=== PATIENT | male | born 1980 | race Two or more races ===

== ENCOUNTER 2019-10-30 02:14 | Inpatient (IN) | payer MEDICARE, OTHER ==
[~2019-10-30] VITALS: Ht 167.6 cm; Wt 64.4 kg
[2019-10-30] VITALS (22 sets, daily range): BP systolic 136–193; BP diastolic 86–110
--- NOTE | 2019-10-30 02:18 | NUR ---
ED Nurse Note: Patient ANA RAAndrea from home c/o SOB since yesterday but got worse today. Per pt, he is using O2 at home @3-4L via nc. Bilateral lungs are clear. Pt was on 15L, non breather upon arrival, O2 100%. Pt has single lumen PICC line right upper chest and dialysis access on left upper arm. Dialysis days MWF, last dialysis was on Sat. Pt placed on alarm security or surveillance monitor.
--- NOTE | 2019-10-30 02:30 | Emergency Room Report ---
History of Present Illness General Chief Complaint: Dyspnea/Respdistress Source: Patient Present Illness HPI Patient presents with complaints of shortness of breath Reports that he has dialysis usually has dialysis Wednesday however had extra dialysis on Wednesday still feels very short of breath Patient reports that he has been changing the new medication and feels that he is retaining fluid Denies any vomiting denies any fevers denies any recent travel denies any other known sick contact COVID-19 risk:Travel to affect: No Allergies: Coded Allergies: METOCLOPRAMIDE (Verified Allergy, Unknown, 10/30/19) Patient History Past Medical History: see triage record Reviewed Nursing Documentation: PMH: Agreed; PSxH: Agreed Nursing Documentation-PMH Hx Hypertension: Yes Hx Asthma: Yes Hx Diabetes: Yes Hx Dialysis: Yes - MWF Review of Systems All Other Systems: negative except mentioned in HPI Physical Exam Vital Signs Date Time Temp Pulse Resp B/P (MAP) Pulse Ox O2 Delivery O2 Flow Rate FiO2 10/30/19 02:16 97.9 96 18 193/108 (136) 100 Simple Mask 15.0 Sp02 EP Interpretation: reviewed, normal General Appearance: moderate distress - Short of breath Head: normocephalic, atraumatic Eyes: bilateral eye PERRL, bilateral eye EOMI ENT: hearing grossly normal, EOM grossly intact Neck: supple Respiratory: crackles - bilaterally and tachypneic Cardiovascular #1: regular rate, rhythm Gastrointestinal: non tender, soft Musculoskeletal: normal inspection Neurologic: alert Skin: other - Pitting edema bilaterally Lymphatic: normal inspection Procedures Critical Care Time Critical Care Time 50 minutes for multiple re-evaluations critical presentation concerning for respiratory decompensation and possible not including any procedural time Medical Decision Making Diagnostic Impression: Primary Impression: Dyspnea Additional Impressions: Renal failure Respiratory distress ER Course Patient is a fairly complex patient with multiple differential to consideration including but not limited to cardiac cardiopulmonary and vascular emergencies Patient's x-ray shows concerning findings With significant pulmonary congestion On discussion with the patient's Applique Sewer patient also has had recent open heart surgery Patient placed on emergent BiPAP diuretics are provided patient reports he does make urine Requires more emergent dialysis and is admitted to ICU patient's primary physician /Shower Maid also contacted Labs Test 10/30/19 02:30 White Blood Count 8.3 K/UL (4.8-10.8) Red Blood Count 3.27 M/UL (4.70-6.10) Hemoglobin 9.4 G/DL (14.2-18.0) Hematocrit 28.6 % (42.0-52.0) Mean Corpuscular Volume 87 FL (80-99) Mean Corpuscular Hemoglobin 28.6 PG (27.0-31.0) Mean Corpuscular Hemoglobin Concent 32.7 G/DL (32.0-36.0) Red Cell Distribution Width 17.1 % (11.6-14.8) Platelet Count 269 K/UL (150-450) Mean Platelet Volume 5.6 FL (6.5-10.1) Neutrophils (%) (Auto) 77.4 % (45.0-75.0) Lymphocytes (%) (Auto) 11.0 % (20.0-45.0) Monocytes (%) (Auto) 6.7 % (1.0-10.0) Eosinophils (%) (Auto) 3.7 % (0.0-3.0) Basophils (%) (Auto) 1.2 % (0.0-2.0) Sodium Level 136 MMOL/L (136-145) Potassium Level 4.5 MMOL/L (3.5-5.1) Chloride Level 98 MMOL/L (98-107) Carbon Dioxide Level 28 MMOL/L (21-32) Anion Gap 10 mmol/L (5-15) Blood Urea Nitrogen 49 mg/dL (7-18) Creatinine 6.5 MG/DL (0.55-1.30) Estimat Glomerular Filtration Rate 9.7 mL/min (>60) Glucose Level 308 MG/DL (74-106) Calcium Level 9.0 MG/DL (8.5-10.1) Total Bilirubin 0.5 MG/DL (0.2-1.0) Aspartate Amino Transf (AST/SGOT) 34 U/L (15-37) Alanine Aminotransferase (ALT/SGPT) 27 U/L (12-78) Alkaline Phosphatase 178 U/L (46-116) Total Creatine Kinase 52 U/L (26-308) Troponin I 0.029 ng/mL (0.000-0.056) Pro-B-Type Natriuretic Peptide > 28489 pg/mL (0-125) Total Protein 7.7 G/DL (6.4-8.2) Albumin 3.0 G/DL (3.4-5.0) Globulin 4.7 g/dL Albumin/Globulin Ratio 0.6 (1.0-2.7) EKG Diagnostic Results Rate: normal Rhythm: NSR ST Segments: other - Nonspecific ST and T wave changes Rhythm Strip Diag. Results EP Interpretation: yes Rate: 88 Rhythm: NSR, no PVC's, no ectopy Chest X-Ray Diagnostic Results Chest X-Ray Diagnostic Results : Chest X-Ray Ordered: Yes # of Views/Limited/Complete: 1 View Indication: Shortness of Breath EP Interpretation: Yes Interpretation: no pneumothorax, other - Significant pulmonary edema, cardiomegaly Impression: Other - Pulmonary edema Electronically Signed by: Aisha Ward DO Last Vital Signs Date Time Temp Pulse Resp B/P (MAP) Pulse Ox O2 Delivery O2 Flow Rate FiO2 10/30/19 02:18 97.9 96 18 193/108 100 Non-Rebreather 15.0 Status: improved Disposition: ADMITTED INPATIENT Condition: Critical Aisha Ward DO Oct 30, 2019 02:30
--- NOTE | 2019-10-30 02:40 | NUR ---
RESPIRATORY NOTE: Pt came in ED c/o SOB. Pt placed on BiPAP 15/5, back up rate 14, 40%. Pt on a Facial mask, skin intact, no redness/breakdowns noted. Foam tape applied on pt's nosebridge/cheeks/chin to prevent mask irritations. Pt is alert/awake, follows commands. B/S saundra. diminished, nonproductive cough. BiPAP plugged into red outlet, alarms on & audible. Pt comfortable on current settings, tolerating well. Will continue to monitor pt.
--- NOTE | 2019-10-30 02:41 | NUR ---
ED Nurse Note: BIPAP is in placed c/o RT. Settings: 15/5, FiO2 40%.
[2019-10-30 02:46] LABS: BASOPHILS % (AUTO) 1.2 % (0.0-2.0); EOSINOPHILS % (AUTO) 3.7 % (0.0-3.0); HEMATOCRIT 28.6 % (42.0-52.0); HEMOGLOBIN 9.4 G/DL (14.2-18.0); MEAN CORPUSCULAR VOLUME 87 FL (80-99); MONOCYTES % (AUTO) 6.7 % (1.0-10.0); NEUTROPHILS % (AUTO) 77.4 % (45.0-75.0); PLATELET COUNT 269 K/UL (150-450); RED BLOOD COUNT 3.27 M/UL (4.70-6.10); RED CELL DISTRIBUTION WIDTH 17.1 % (11.6-14.8); WHITE BLOOD COUNT 8.3 K/UL (4.8-10.8)
[2019-10-30 02:52] LABS: ANION GAP 10 mmol/L (5-15); BLOOD UREA NITROGEN 49 mg/dL (7-18); CARBON DIOXIDE 28 MMOL/L (21-32); CHLORIDE 98 MMOL/L (98-107); CREATININE 6.5 MG/DL (0.55-1.30); POTASSIUM 4.5 MMOL/L (3.5-5.1); SODIUM 136 MMOL/L (136-145)
[2019-10-30 03:03] LABS: ALANINE AMINOTRANSFERASE 27 U/L (12-78); ALBUMIN/GLOBULIN RATIO 0.6 (1.0-2.7); ALKALINE PHOSPHATASE 178 U/L (46-116); ASPARTATE AMINO TRANSFERASE 34 U/L (15-37); BILIRUBIN,TOTAL 0.5 MG/DL (0.2-1.0); CREATINE KINASE 52 U/L (26-308)
[2019-10-30] MEDS ORDERED: DRONABINOL10 MG PO (03:16)
[2019-10-30] MEDS ORDERED: PANTOPRAZOLE SO40 MG ORAL (03:16)
[2019-10-30] MEDS ORDERED: BUMETANIDE1 MG ORAL (03:16)
[2019-10-30] MEDS ORDERED: ASPIRIN81 MG ORAL (03:16)
[2019-10-30] MEDS ORDERED: HYDRALAZINE HCL50 MG ORAL (03:16)
[2019-10-30] MEDS ORDERED: CARVEDILOL25 MG ORAL (03:16)
[2019-10-30] MEDS ORDERED: CRESTOR10 M2 ORAL (03:16)
[2019-10-30] MEDS ORDERED: AMITRIPTYLINE H10 MG ORAL (03:16)
[2019-10-30] MEDS ORDERED: AMLODIPINE BESY10 MG ORAL (03:16)
[2019-10-30] MEDS ORDERED: DICYCLOMINE HCL10 MG ORAL (03:16)
[2019-10-30] MEDS ORDERED: SENNA8.6 M2 PO (03:16)
[2019-10-30] MEDS ORDERED: NICODERM CQ1 EAC1 TD (03:16)
[2019-10-30] MEDS ORDERED: LANTUS SOL100 UNIT/1 SUBQ (03:16)
[2019-10-30] MEDS ORDERED: NEPHROVITE1 TAB ORAL (03:16)
[2019-10-30] MEDS ORDERED: OXYCODONE HCL15 M1 ORAL (03:16)
[2019-10-30] MEDS ORDERED: CALCIUM ACETAT667 M1 PO (03:16)
[2019-10-30] MEDS ORDERED: CARAFATE1 G1 ORAL (03:16)
[2019-10-30] MEDS ORDERED: ROBAXIN-500MG ORAL (03:16)
[2019-10-30] MEDS ORDERED: HUMALOG100 UNIT/4 SUBQ (03:16)
[2019-10-30] MEDS ORDERED: DOCUSATE SODIU100 MG ORAL (03:16)
--- NOTE | 2019-10-30 03:34 | NUR ---
ED Nurse Note: Pt refused CRE/ VRE swabs.
--- NOTE | 2019-10-30 03:36 | NUR ---
Spoke with Alexandre at [facility]-informed him of the dialysis order. Also told him that patient will be in ICU.
--- NOTE | 2019-10-30 03:48 | NUR ---
ED Nurse Note: Report given to Satnam LAUREN.
--- NOTE | 2019-10-30 04:00 | NUR ---
TRANSFER TO FLOOR: Patient transferred to ICU. Report given to Satnam LAUREN. Pt alert and orientedx4, verbally responsive. On BIPAP, tolerating well. Not in any distress. Pt has PICC line single lumen on right upper chest, patent and intact. Dialysis access on left upper arm. No skin issues. No isolation Swabs are sent. Med recon done. All belongings was sent with the patient. Family member aware of the transfer.
--- NOTE | 2019-10-30 04:30 | NUR ---
NURSE NOTES: admit pt from er c/o sob hx hd pt and astma and htn pt c/o pain dr delarosa and dr pate notify with made pain medication given
[2019-10-30] MEDS ORDERED: LORazepam Inj 2mg/ml 1ml IV PRN (04:45)
[2019-10-30] MEDS ORDERED: HYDROmorphone 1mg/ml Carpuject ONE (04:52)
[2019-10-30] MEDS: HYDROmorphone 1mg/ml Carpuject IVP PRN ×5 (05:03→20:01)
--- NOTE | 2019-10-30 06:00 | NUR ---
NURSE NOTES: pt no c/o pain hd stared
[2019-10-30] MEDS: NovoLOG Insulin Flexpen SUBQ SCH ×4 (06:18→20:20)
--- NOTE | 2019-10-30 07:51 | NUR ---
NURSE NOTES: Pt received from LEONIDAS Menezes. Pt is asleep, drowsy, in bed, AAO x1 , able to follow commands. PERRLA + bilat pupils. Pt noted in SR to front desk monitor. No distress noted. Bilat radial and dorsalis pedis pulses 3+. Pt in on Bipap 15/5 35% spO2 98-99%. Bilat lower lung lobes noted diminished and bilat upper lung lobes with fine crackles to auscultation. No skin alterations noted. Pt has a MAEGAN AV shunt and is currently receiving dialysis. R upper chest PICC single lumen noted saline locked. BG checked noted 117. Pt is afebrile. Bed is in lowest position, alarm on, side rails up x 3, call light within reach. Will continue to monitor pt.
--- NOTE | 2019-10-30 07:51 | NUR ---
HAND-OFF: Report given to austen dutton using sbar.
--- NOTE | 2019-10-30 08:23 | Diagnostic Imaging Report ---
Indication: Shortness of breath Technique: One view of the chest Comparison: none Findings: Extensive bilateral interstitial and airspace infiltrates versus edema is noted. Right-sided pleural thickening and/or fluid is present. There is slight blunting of left costophrenic sulcus, likely indicating a small amount of pleural fluid. There is a right chest tunneled smallbore central venous catheter. There is evidence of prior median sternotomy. Impression: Extensive bilateral diffuse interstitial and airspace infiltrates versus edema Large right pleural effusion and/or pleural thickening Suspect small left pleural effusion
--- NOTE | 2019-10-30 08:52 | NUR ---
HAND-OFF: Report given to Talia, charge nurse. Pt still receving dialysis.
[2019-10-30] MEDS: HydrALAZINE 50mg tab ORAL SCH ×3 (09:00→17:48)
[2019-10-30] MEDS: Carvedilol 25mg Tab ORAL SCH ×2 (09:00→20:17)
[2019-10-30] MEDS: Lisinopril 20mg tab ORAL SCH ×2 (09:00→17:47)
[2019-10-30] MEDS: Heparin 5000 units/ml inj SUBQ SCH ×2 (09:00→20:19)
--- NOTE | 2019-10-30 09:30 | NUR ---
pt received hd via left fistula with present thrill and bruit by maria del carmen cazares/pérez, received pt from precious ,pt is on bipap and sleeping,vs stable uf 35ooml tolerated hd tx from 0600 to 0930am endorsed to liv with strong thrill and bruit clot time a;8min v;8min after hd.
--- NOTE | 2019-10-30 09:45 | Consultation ---
DATE OF CONSULTATION: 10/30/2019 CONSULTING PHYSICIAN: Ismael Gallagher M.D. DATE OF ADMISSION: October 30, 2019 REASON FOR ADMISSION: 1. End-stage renal disease, on dialysis. 2. Shortness of breath. HISTORY OF PRESENT ILLNESS: The patient is a 39-year-old gentleman on dialysis Wednesday, Wednesday, and Wednesday. The patient did undergo extra hemodialysis session on Wednesday, continued to feel short of breath, extremely elevated blood pressure, who was in respiratory distress. BiPAP was placed and the patient was transferred to intensive care unit. The patient has a history recently of right-sided effusion requiring thoracotomy at [facility]. He is currently undergoing hemodialysis. ALLERGIES: Metoclopramide. PAST MEDICAL HISTORY: 1. End-stage renal disease, on dialysis. 2. Hypertension. 3. Asthma. 4. Diabetes. 5. ESRD. REVIEW OF SYSTEMS: The patient currently on facial BiPAP. LABORATORY DATA: Laboratories dated October 30, 2019, sodium 136, potassium 4.5, bicarb 28, creatinine 6.5. White count 9.4, 8.3, and platelet count 269,000. PHYSICAL EXAMINATION: VITAL SIGNS: Blood pressure 136/86, respiratory rate 20, pulse 90, and 100% oxygen saturation on facial BiPAP. GENERAL: The patient is somnolent, but arousable. HEENT: Extraocular muscles intact. No lymphadenopathy noted. CARDIOVASCULAR: S1, S2. No rubs or gallops. PULMONARY: Mild upper rhonchi and basilar rales. ABDOMEN: Nondistended and nontender. EXTREMITIES: No edema. ASSESSMENT AND PLAN: 1. End-stage renal disease, on hemodialysis. The patient is undergoing emergent hemodialysis with ultrafiltration. 2. Hypertensive urgency. We will continue Coreg, hydralazine, and Procardia. We will adjust medications as deemed appropriate. 3. Anemia of chronic kidney disease. Once blood pressure is stable, we will continue Epogen. 4. Respiratory failure. Defer management to Pulmonary. Three and a half liters of ultrafiltration. On facial BiPAP. Ismael Gallagher MD DR: Ronel JOB#: [id number] CC:
--- NOTE | 2019-10-30 09:45 | NUR ---
0945 hd completed with 3,5 liter removed LT,AVF SITE DRESSING CHANGED BY [facility] HD NURSE CHARLES Holcomb V/S CONDITION STABLE
--- NOTE | 2019-10-30 11:48 | NUR ---
PT SEEN BY ENRIQUE CROW NO NEW ORDERS ,CONT BIPAP
--- NOTE | 2019-10-30 12:01 | History & Physical ---
History and Physical History & Physicial HISTORY OF PRESENT ILLNESS: The patient is a 39-year-old gentleman on dialysis Wednesday, Wednesday, and Wednesday. The patient did undergo extra hemodialysis session on Wednesday, continued to feel short of breath, extremely elevated blood pressure, who was in respiratory distress. BiPAP was placed and the patient was transferred to intensive care unit. The patient has a history recently of right-sided effusion requiring thoracotomy at [facility]. He was admitted with respiratory failure on BiPAP ALLERGIES: Metoclopramide. PAST MEDICAL HISTORY: 1. End-stage renal disease, on dialysis. 2. Hypertension. 3. Asthma. 4. Diabetes. 5. ESRD. 6. Previous R thoracotomy and decortication REVIEW OF SYSTEMS: The patient currently on facial BiPAP. LABORATORY DATA: Laboratories dated October 30, 2019, sodium 136, potassium 4.5, bicarb 28, creatinine 6.5. White count 9.4, 8.3, and platelet count 269,000. PHYSICAL EXAMINATION: VITAL SIGNS: Blood pressure 136/86, respiratory rate 20, pulse 90, and 100% oxygen saturation on facial BiPAP. GENERAL: The patient is somnolent, but arousable. HEENT: Extraocular muscles intact. No lymphadenopathy noted. CARDIOVASCULAR: S1, S2. No rubs or gallops. PULMONARY: Mild upper rhonchi and basilar rales. ABDOMEN: Nondistended and nontender. EXTREMITIES: No edema. ASSESSMENT AND PLAN: 1. End-stage renal disease, on hemodialysis. The patient is undergoing emergent hemodialysis with ultrafiltration. 2. Hypertensive urgency. I will continue Coreg, hydralazine, and Procardia. I will adjust medications as deemed appropriate. 3. Anemia of chronic kidney disease. Once blood pressure is stable, we will continue Epogen. 4. Respiratory failure. Will wean BiPAP. MD Liv Dennis Omar Syed MD Oct 30, 2019 12:01
--- NOTE | 2019-10-30 12:52 | NUR ---
Social Work This SW met with patient, currently in the ICU who is sedated, not responsive at this time. This SW spoke with caregiver/cousin (currently in the waiting room), who explains patient lives with her and plans to assist as needed upon discharge (she is at home with patient 08/03). Patient was using home 02 (2-3 liters) and had home care prior (unable to recall the name of the agency at this time). Patient was ambulatory overall and has a wheelchair and cane, as needed. CousinLilian ([phone]) will transport patient to home when medically stable. Lilian denied any history of substance abuse, while patient had quit smoking cigarettes over two months ago. Patient is receiving SSI. Cousin explains she has been having problems with the Social Security office, regarding "back-pay." Legal services contacts were provided by this SW. Patient has a flight of steps to get into their home, while cousin explains she believes patient can manage, was mostly independent prior. Patient has a history of depression and suicidal ideations, but has not been verbalizing any SI for some time, according to Rayna. Alejandra, RETAIL ZONE SPECIALIST notified, for Psych to follow, as needed. Patient has been coping overall emotionally per nursing and family reports.
--- NOTE | 2019-10-30 14:01 | NUR ---
NURSE NOTES: Patient complaining of severe pain 02/22. Patient nurse unable to assist the patient at this time. Patient given PRN Dilaudid IV medication at this time as ordered. Patient also requesting his Nicotine patch. Nicotine patch was due this morning at 0900. Nicotine patch given at this time in addition to Hydralazine PO that is ordered to be given now. Patient also requesting to be placed back on BiPAP as he is feeling short of breath. BiPAP placed back on patient. Will notify RT. Patient blood sugar checked per patient request at this time. Blood sugar 271. However coverage not due at this time and patient just drank juice and ate his lunch. Will recheck blood sugar in an hour. Patient agreed. LEONIDAS Melgar notified.
--- NOTE | 2019-10-30 15:52 | NUR ---
[employer] SI: RESP FAILURE, RENAL FAILURE T. 97.8 HR 96 RR 18 B/P 193/108 BIPAP 15/5 FIO2 40% ALK PHOS 170 BNP>[id number] CXR= Extensive bilateral diffuse interstitial and airspace infiltrates versus edema. IS: HD DIALYSIS ADMITTED TO ICU ICU STATUS DCP PENDING HOSPITAL STAY
--- NOTE | 2019-10-30 17:00 | NUR ---
sitting up @bedsidr on O2 3L/NC SAT96% NO ACUTE DISTRESS NOTED
--- NOTE | 2019-10-30 18:32 | NUR ---
@1800 pt,requested place BACK ON BIPAP SAT 100% ON BIPAP/ASLEEP V/S CONDITION STABLE
--- NOTE | 2019-10-30 19:10 | NUR ---
NURSE NOTES: Pt report received from Talia major RN. pt remains stable. pt is alert and oriented times 4, able to follow commands. pt is on environmental monitoring specialist showing NSR, no cardiac distress noted. pt is on BIPAP showing 99% O2. no signs symptoms of resp distress noted. pt bed is low, locked, armed, call light within reach, bed rails up times 3. will follow plan of care.
--- NOTE | 2019-10-30 19:26 | NUR ---
HAND-OFF: Report given to isabelle MONSON.
[2019-10-30] MEDS ORDERED: ADALAT20 MG ORAL (21:12)
[2019-10-30] MEDS ORDERED: CATAPRES0.1 MG ORAL (21:16)
[2019-10-30] MEDS ORDERED: B COMPLEX-FOLI1 EACH ORAL (21:20)
--- NOTE | 2019-10-30 21:23 | NUR ---
NURSE NOTES: Discussed pts home meds with Pt and family member. reconciled home meds.
--- NOTE | 2019-10-30 21:39 | NUR ---
NURSE NOTES: Called Doctor ENRIQUE Spicer reported pts consistent high blood presses (refer to vital signs). Doctor reviewed all meds pt is on and ordered clonodine .2 mg PO Q4 hr PRN for SBP greater than 160.
[2019-10-30] MEDS: cloNIDine 0.2mg Tab ORAL PRN (21:51)
[2019-10-30] MEDS ORDERED: Dyna-Hex 2% Top Sol 2oz TOPIC ONE (23:00)
[2019-10-31] VITALS (22 sets, daily range): BP systolic 147–193; BP diastolic 69–118
[2019-10-31] MEDS: cloNIDine 0.2mg Tab ORAL PRN (02:13)
[2019-10-31] MEDS: HYDROmorphone 1mg/ml Carpuject IVP PRN ×4 (03:32→19:38)
[2019-10-31 05:26] LABS: BASOPHILS % (AUTO) 0.9 % (0.0-2.0); EOSINOPHILS % (AUTO) 5.1 % (0.0-3.0); HEMATOCRIT 27.7 % (42.0-52.0); LYMPHOCYTES % (AUTO) 15.9 % (20.0-45.0); MEAN CORPUSCULAR VOLUME 89 FL (80-99); MONOCYTES % (AUTO) 6.9 % (1.0-10.0); NEUTROPHILS % (AUTO) 71.3 % (45.0-75.0); PLATELET COUNT 242 K/UL (150-450); RED BLOOD COUNT 3.11 M/UL (4.70-6.10); RED CELL DISTRIBUTION WIDTH 17.8 % (11.6-14.8); WHITE BLOOD COUNT 6.7 K/UL (4.8-10.8)
[2019-10-31 05:37] LABS: ANION GAP 8 mmol/L (5-15); BLOOD UREA NITROGEN 42 mg/dL (7-18); CALCIUM 8.7 MG/DL (8.5-10.1); CARBON DIOXIDE 31 MMOL/L (21-32); CHLORIDE 97 MMOL/L (98-107); CREATININE 5.8 MG/DL (0.55-1.30); POTASSIUM 4.6 MMOL/L (3.5-5.1); SODIUM 136 MMOL/L (136-145)
[2019-10-31] MEDS: NovoLOG Insulin Flexpen SUBQ SCH ×4 (05:49→21:55)
--- NOTE | 2019-10-31 06:29 | NUR ---
NURSE NOTES: called doctor Gallagher. stated pts blood pressure has been constantly high the whole night warehouse selector. also stated to doctor Gallagher that doctor panda is aware of high blood pressure, and doctor Peck had ordered PRN Clonidine 0.2 MG Q4 PRN. Doctor Gallagher stated he will adjust pts medications. no new order.
--- NOTE | 2019-10-31 07:13 | NUR ---
HAND-OFF: Report given to Demetrice LAUREN. Pt remains stable.
--- NOTE | 2019-10-31 07:28 | NUR ---
NURSE NOTES: Received bedside report from Marcio Silverman RN. Pt. in bed, sitting at the edge of the bed having breakfast. A/O x 4. No sign of distress. On O2 at 2LPM via NC. Pt. took off his Bipap at around 5am per previous shift. PICC line at right upper chest in placed with 1 lumen. MAEGAN AV shunt in placed, no s/sx of bleeding at the site. Call light within reach. Will cont. to monitor.
--- NOTE | 2019-10-31 08:06 | Nephrology Progress Note ---
Assessment/Plan Assessment/Plan: A/P 1) ESRD- HD today again for volume management 2) HTN- added clonidine patch and increased Coreg 3) Resp FL- resolved, off BiPAP, transfer to [facility] 4) Anemia of CKD- hold off EPO until BP stable 5) SHPT- renvela with meals 6) DM- per PCP Subjective Date patient seen: Oct 31, 2019 Time patient seen: 08:01 ROS Limited/Unobtainable: No Allergies: Coded Allergies: METOCLOPRAMIDE (Verified Allergy, Unknown, 10/30/19) All Systems: reviewed and negative except above Subjective Feeling much better. BP still elevated Objective Last 24 Hour Vital Signs Date Time Temp Pulse Resp B/P (MAP) Pulse Ox O2 Delivery O2 Flow Rate FiO2 10/31/19 07:09 81 15 157/89 (111) 99 10/31/19 07:00 81 18 177/117 (137) 100 10/31/19 07:00 81 18 100 10/31/19 06:00 80 19 186/99 (128) 99 10/31/19 05:00 80 19 174/88 (116) 98 10/31/19 04:00 40 10/31/19 04:00 Bi-pap Bi-pap 10/31/19 04:00 97.9 80 20 159/98 (118) 98 10/31/19 04:00 85 10/31/19 03:00 85 19 185/96 (125) 99 10/31/19 02:40 79 19 95 35 10/31/19 02:13 166/92 10/31/19 02:00 80 19 166/92 (116) 98 10/31/19 01:24 79 31 100 35 10/31/19 01:00 82 18 171/89 (116) 98 10/31/19 00:00 74 10/31/19 00:00 40 10/31/19 00:00 Bi-pap Bi-pap 10/31/19 00:00 97.8 77 20 162/93 (116) 99 10/30/19 23:51 72 17 99 35 10/30/19 23:00 74 20 174/86 (115) 99 10/30/19 22:00 79 20 181/104 (129) 99 10/30/19 21:51 180/111 10/30/19 21:09 79 17 100 35 10/30/19 21:00 83 20 187/108 (134) 100 10/30/19 20:17 89 185/102 10/30/19 20:00 40 10/30/19 20:00 89 10/30/19 20:00 98.4 90 21 185/108 (133) 99 10/30/19 20:00 Bi-pap Bi-pap 10/30/19 19:48 95 22 100 35 10/30/19 19:00 90 23 174/102 (126) 100 10/30/19 18:00 40 10/30/19 18:00 91 24 163/90 (114) 97 10/30/19 17:48 182/112 10/30/19 17:47 182/112 10/30/19 17:00 97 15 174/90 (118) 96 10/30/19 16:00 Bi-pap Bi-pap 10/30/19 16:00 97.6 92 15 174/110 (131) 93 10/30/19 16:00 99 10/30/19 15:25 92 24 98 35 10/30/19 15:00 92 15 182/105 (130) 93 10/30/19 14:00 91 13 186/98 (127) 98 10/30/19 13:52 177/109 10/30/19 13:13 3.0 10/30/19 13:00 98 17 175/97 (123) 100 10/30/19 12:00 Bi-pap Bi-pap 10/30/19 11:59 98.2 88 21 168/97 (120) 100 10/30/19 11:56 88 10/30/19 11:00 87 17 170/100 (123) 100 10/30/19 10:55 80 18 100 35 10/30/19 10:00 84 17 158/97 (117) 100 10/30/19 09:15 83 20 100 35 10/30/19 09:00 140/70 10/30/19 09:00 88 140/70 10/30/19 09:00 140/70 10/30/19 09:00 79 14 138/96 (110) 100 Intake and Output 10/30/19 10/31/19 19:00 07:00 Intake Total 3900 ml 100 ml Output Total 3500 ml Balance 400 ml 100 ml Intake Oral 400 ml 100 ml Hemodialysis 3500 ml Output Urine Total 0 ml Hemodialysis UF 3500 ml Laboratory Tests 10/31/19 03:20: White Blood Count 6.7, Red Blood Count 3.11L, Hemoglobin 9.0L, Hematocrit 27.7L , Mean Corpuscular Volume 89, Mean Corpuscular Hemoglobin 28.8, Mean Corpuscular Hemoglobin Concent 32.3, Red Cell Distribution Width 17.8H, Platelet Count 242, Mean Platelet Volume 5.7L, Neutrophils (%) (Auto) 71.3, Lymphocytes (%) (Auto) 15.9L, Monocytes (%) (Auto) 6.9, Eosinophils (%) (Auto) 5.1H, Basophils (%) (Auto) 0.9, Sodium Level 136, Potassium Level 4.6, Chloride Level 97L, Carbon Dioxide Level 31, Anion Gap 8, Blood Urea Nitrogen 42H, Creatinine 5.8H, Estimat Glomerular Filtration Rate 11.1, Glucose Level 272H, Calcium Level 8.7 Height (Feet): 5 Height (Inches): 6.00 Weight (Pounds): 139 General Appearance: no apparent distress, alert EENT: normal ENT inspection Neck: normal alignment, supple Cardiovascular: normal rate, regular rhythm Respiratory/Chest: lungs clear, normal breath sounds Abdomen: non tender, soft Edema: no edema noted Arm (L), no edema noted Arm (R), no edema noted Leg (L), no edema noted Leg (R), no edema noted Pedal (L), no edema noted Pedal (R), no edema noted Generalized Ismael Gallagher MD Oct 31, 2019 08:06
[2019-10-31] MEDS: HydrALAZINE 50mg tab ORAL SCH ×3 (08:27→18:13)
[2019-10-31] MEDS: Lisinopril 20mg tab ORAL SCH ×2 (08:28→18:13)
[2019-10-31] MEDS: Heparin 5000 units/ml inj SUBQ SCH ×2 (08:31→21:55)
--- NOTE | 2019-10-31 08:40 | NUR ---
NURSE NOTES: Pt. noted keeps on drinking his ice water at bedside. Educated regarding intake. Verbalized understanding.
[2019-10-31] MEDS ORDERED: Carvedilol 12.5mg tab ORAL SCH ×2 (09:00→21:00)
--- NOTE | 2019-10-31 10:11 | NUR ---
NURSE NOTES: Pt. remain stable. Sleeping but arousable.
--- NOTE | 2019-10-31 10:13 | Pulmonology Progress Note ---
Assessment/Plan Assessment/Plan ASSESSMENT AND PLAN: 1. End-stage renal disease, on hemodialysis. S/p hemodialysis with ultrafiltration. 2. Hypertensive urgency. I will continue Coreg, hydralazine, and Procardia. I will adjust medications as deemed appropriate. 3. Anemia of chronic kidney disease. Once blood pressure is stable, we will continue Epogen. 4. Respiratory failure. Off BiPAP. Will transfer out of ICU Further HD per renal Lele Peck MD Subjective Interval Events: Doing better Constitutional: Reports: no symptoms HEENT: Repors: no symptoms Respiratory: Reports: no symptoms Cardiovascular: Reports: no symptoms Gastrointestinal/Abdominal: Reports: no symptoms Allergies: Coded Allergies: METOCLOPRAMIDE (Verified Allergy, Unknown, 10/30/19) Objective Last 24 Hour Vital Signs Date Time Temp Pulse Resp B/P (MAP) Pulse Ox O2 Delivery O2 Flow Rate FiO2 10/31/19 10:00 79 13 189/109 (135) 100 10/31/19 09:55 173/118 10/31/19 09:00 79 16 173/118 (136) 100 10/31/19 08:59 98.4 10/31/19 08:28 153/88 10/31/19 08:27 81 153/88 10/31/19 08:27 153/88 10/31/19 08:10 98.4 81 19 153/88 (109) 100 10/31/19 08:01 81 10/31/19 08:00 Bi-pap Bi-pap 10/31/19 08:00 3.0 10/31/19 07:09 81 15 157/89 (111) 99 10/31/19 07:00 81 18 177/117 (137) 100 10/31/19 07:00 81 18 100 10/31/19 06:00 80 19 186/99 (128) 99 10/31/19 05:00 80 19 174/88 (116) 98 10/31/19 04:00 40 10/31/19 04:00 Bi-pap Bi-pap 10/31/19 04:00 97.9 80 20 159/98 (118) 98 10/31/19 04:00 85 3/17/20 03:00 85 19 185/96 (125) 99 10/31/19 02:40 79 19 95 35 10/31/19 02:13 166/92 10/31/19 02:00 80 19 166/92 (116) 98 10/31/19 01:24 79 31 100 35 10/31/19 01:00 82 18 171/89 (116) 98 10/31/19 00:00 74 10/31/19 00:00 40 10/31/19 00:00 Bi-pap Bi-pap 10/31/19 00:00 97.8 77 20 162/93 (116) 99 10/30/19 23:51 72 17 99 35 10/30/19 23:00 74 20 174/86 (115) 99 10/30/19 22:00 79 20 181/104 (129) 99 10/30/19 21:51 180/111 10/30/19 21:09 79 17 100 35 10/30/19 21:00 83 20 187/108 (134) 100 10/30/19 20:17 89 185/102 10/30/19 20:00 40 10/30/19 20:00 89 10/30/19 20:00 98.4 90 21 185/108 (133) 99 10/30/19 20:00 Bi-pap Bi-pap 10/30/19 19:48 95 22 100 35 10/30/19 19:00 90 23 174/102 (126) 100 10/30/19 18:00 40 10/30/19 18:00 91 24 163/90 (114) 97 10/30/19 17:48 182/112 10/30/19 17:47 182/112 10/30/19 17:00 97 15 174/90 (118) 96 10/30/19 16:00 Bi-pap Bi-pap 10/30/19 16:00 97.6 92 15 174/110 (131) 93 10/30/19 16:00 99 10/30/19 15:25 92 24 98 35 10/30/19 15:00 92 15 182/105 (130) 93 10/30/19 14:00 91 13 186/98 (127) 98 10/30/19 13:52 177/109 10/30/19 13:13 3.0 10/30/19 13:00 98 17 175/97 (123) 100 10/30/19 12:00 Bi-pap Bi-pap 10/30/19 11:59 98.2 88 21 168/97 (120) 100 10/30/19 11:56 88 10/30/19 11:00 87 17 170/100 (123) 100 10/30/19 10:55 80 18 100 35 Intake and Output 10/30/19 10/31/19 19:00 07:00 Intake Total 3900 ml 100 ml Output Total 3500 ml Balance 400 ml 100 ml Intake Oral 400 ml 100 ml Hemodialysis 3500 ml Output Urine Total 0 ml Hemodialysis UF 3500 ml General Appearance: no acute distress HEENT: normocephalic Respiratory/Chest: chest wall non-tender, lungs clear Cardiovascular: normal peripheral pulses Abdomen: normal bowel sounds Laboratory Tests 10/31/19 03:20: White Blood Count 6.7, Red Blood Count 3.11L, Hemoglobin 9.0L, Hematocrit 27.7L , Mean Corpuscular Volume 89, Mean Corpuscular Hemoglobin 28.8, Mean Corpuscular Hemoglobin Concent 32.3, Red Cell Distribution Width 17.8H, Platelet Count 242, Mean Platelet Volume 5.7L, Neutrophils (%) (Auto) 71.3, Lymphocytes (%) (Auto) 15.9L, Monocytes (%) (Auto) 6.9, Eosinophils (%) (Auto) 5.1H, Basophils (%) (Auto) 0.9, Sodium Level 136, Potassium Level 4.6, Chloride Level 97L, Carbon Dioxide Level 31, Anion Gap 8, Blood Urea Nitrogen 42H, Creatinine 5.8H, Estimat Glomerular Filtration Rate 11.1, Glucose Level 272H, Calcium Level 8.7 Current Medications Medications (Trade) Dose Ordered Sig/Rodolfo Route PRN Reason Start Time Stop Time Status Last Admin Dose Admin Acetaminophen (Tylenol) 650 mg Q4H PRN ORAL Mild Pain (Pain Scale 1-3) 10/30/19 03:30 11/29/19 03:29 Carvedilol (Coreg) 37.5 mg EVERY 12 HOURS ORAL 10/31/19 09:00 11/29/19 08:59 10/31/19 08:27 Chlorhexidine Gluconate (Oma-Hex 2%) 1 applic DAILY@1999 TOPIC 10/31/19 20:00 4/16/20 19:59 Clonidine HCl (Catapres TTS-3) 1 patch QWEEK TDERMAL 10/31/19 09:00 11/30/19 08:59 10/31/19 09:55 Clonidine HCl (Catapres tab) 0.2 mg Q4H PRN ORAL SBP > 160mmHg 10/30/19 21:45 11/29/19 21:44 10/31/19 02:13 Dextrose (Dextrose 50%) 25 ml Q30M PRN IV Hypoglycemia 10/30/19 03:30 11/29/19 03:29 Dextrose (Dextrose 50%) 50 ml Q30M PRN IV Hypoglycemia 10/30/19 03:30 11/29/19 03:29 Heparin Sodium (Porcine) (Heparin 5000 units/ml) 5,000 units EVERY 12 HOURS SUBQ 10/30/19 09:00 12/14/19 08:59 10/31/19 08:31 Hydralazine HCl (Apresoline) 100 mg TID ORAL 10/30/19 09:00 11/29/19 08:59 10/31/19 08:27 Hydromorphone HCl (Dilaudid) 1 mg Q4H PRN IVP For Pain 10/30/19 04:45 11/06/19 04:44 10/31/19 08:29 Insulin Aspart (NovoLOG) BEFORE MEALS AND HS SUBQ 10/30/19 06:30 11/29/19 06:29 10/31/19 05:49 Lisinopril (PriniviL) 40 mg BID ORAL 10/30/19 09:00 11/29/19 08:59 10/31/19 08:28 Lorazepam (Ativan 2mg/ml 1ml) 1 mg Q4H PRN IV For Anxiety 10/30/19 04:45 11/06/19 04:44 10/30/19 06:13 Nicotine (Nicoderm) 1 patch Q24H TDERMAL 10/30/19 09:00 11/29/19 08:59 10/31/19 08:28 Ondansetron HCl (Zofran ODT) 4 mg Q6H PRN ORAL Nausea & Vomiting 10/30/19 03:30 11/29/19 03:29 Sevelamer Carbonate (Renvela) 800 mg THREE TIMES A DAY ORAL 10/31/19 09:00 11/30/19 08:59 10/31/19 08:28 Lele Peck MD Oct 31, 2019 10:13
--- NOTE | 2019-10-31 10:38 | NUR ---
NURSE NOTES: Pt. self repositioned himself. No sign of distress.
--- NOTE | 2019-10-31 11:56 | NUR ---
NURSE NOTES: Accu check done. BS 327 and 6units insulin coverage.
--- NOTE | 2019-10-31 13:25 | NUR ---
NURSE NOTES: Pain meds. given Dilaudid 1 mg. IVP given c/o low back pain 05/25. Cont. to monitor.
--- NOTE | 2019-10-31 14:03 | NUR ---
CASE MANAGEMENT:INITIAL REVIEW 39 YR OLD MALE BIBA FROM HOME CC;DYSPNEA. RESP DISTRESS. SI;DYSPNEA. RESPIRATORY DISTRESS. RENAL FAILURE. 98.0 90 25 167/103 99% BI-PAP FIO2 @ 35% BUN 49 CR 6.5 BG 308 ALK PHOS 178 PRO BNP >88006 ALB 3.0 CXR = Extensive bilateral diffuse interstitial and airspace infiltrates versus edema. Large right pleural effusion and/or pleural thickening Suspect small left pleural effusion IS;ZOFRAN IV DILAUDID IV ATIVAN IV LASIX IV ADMITTED TO ICU ICU STATUS DCP;FROM HOME
--- NOTE | 2019-10-31 14:15 | NUR ---
NURSE NOTES: Pt. Hemo dialysis on going.
--- NOTE | 2019-10-31 15:20 | NUR ---
NURSE NOTES: Still on dialysis. V/S stable. Tolerating well.
--- NOTE | 2019-10-31 16:45 | NUR ---
pt received hd via left av fistula by maria del carmen cazares /pérez from 1344 to 164, jordan jaimes and amanda received pt from [facility] pt states feel better, pt tolerated well hd uf 3000ml pt will transfer to step down after hd endorsed to angela
--- NOTE | 2019-10-31 17:33 | NUR ---
NURSE NOTES: S/P dialysis. Pt. tolerated procedure well. Remain stable.
--- NOTE | 2019-10-31 19:30 | NUR ---
HAND-OFF: Report given to Manasa LAUREN. Pt. remain stable.
--- NOTE | 2019-10-31 19:35 | NUR ---
NURSE NOTES: Received bedside report from LEONIDAS ODOM .Patient is awake, alertx4. on NC 4L with no respiratory distress. 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 c/o Back pain 8/10 and requesting pain Meds.PICC line with 1 lumen on right upper chest is intact. AV shunt on left upper arm with present bruit and thrill. no bleeding noted.skin intact. call light in reach.bed in low position with locked. bed alarm on.will administer pain Meds as ordered.will continue to monitor patient closely.
[2019-10-31] MEDS ORDERED: cloNIDine 0.2mg Tab ORAL PRN (20:00)
[2019-10-31] MEDS ORDERED: Dyna-Hex 2% Top Sol 2oz TOPIC SCH ×2 (20:00)
[2019-10-31] MEDS ORDERED: LORazepam Inj 2mg/ml 1ml IV PRN (20:30)
--- NOTE | 2019-10-31 23:50 | NUR ---
HAND-OFF: Report given to LEONIDAS CASTRO using SBAR. No acute distress noted.
[2019-11-01] VITALS: BP 180/87
--- NOTE | 2019-11-01 | NUR ---
NURSE NOTES: Pt report received from Manasa Dumont RN. pt remains stable. pt is alert and oriented times 4, able to follow commands. pt is on BIPAP satting at 99%, no resp distress noted. pt in on security monitor, showing NSR, no signs symptoms of cardiac distress noted. pt bed is low, locked, armed, call light within reach. will follow plan of care.
--- NOTE | 2019-11-01 01:44 | NUR ---
NURSE NOTES: Hydromorphone HCL 1MG/1ML IV given at this time. unable to scan due to system down time. SO Dangelo SAUCEDO RN as Witness.
[2019-11-01 04:00] VITALS: BP 156/71
[2019-11-01] MEDS: NovoLOG Insulin Flexpen SUBQ SCH ×2 (05:49→11:30)
--- NOTE | 2019-11-01 07:26 | NUR ---
HAND-OFF: Report given to KRIS RODRIGUEZ RN. Pt remains stable.
--- NOTE | 2019-11-01 07:26 | NUR ---
NURSE NOTES: Received report RN Marcio Gomez,patient asleep,arousable,conversant,Thankful for his care,provided breakfast,limited water,reviewed with patient,on renal diet,on 4 L Nasal cannula,use O2 at home,breathing regular easytank at bedside,L AV shunt dressing dry with bruit,Right chest single lumen central line 0821 called [facility] notified patient for dialysis today 0829 Akil joyce-hemodialysis nurse called back,will come to do dialysis at noon,advice,patient might be going home
--- NOTE | 2019-11-01 08:00 | Nephrology Progress Note ---
Assessment/Plan Assessment/Plan: A/P 1) ESRD- HD #3 in a row today for excessive volume 2) HTN- added clonidine patch and increased Coreg again today. Procardia XL changed to lisinopril 3) Resp FL- resolved, off BiPAP, transfer to tele 4) Anemia of CKD- hold off EPO until BP stable 5) SHPT- renvela with meals 6) DM- per PCP Subjective Date patient seen: Nov 01, 2019 Time patient seen: 07:58 ROS Limited/Unobtainable: No Allergies: Coded Allergies: METOCLOPRAMIDE (Verified Allergy, Unknown, 10/30/19) Subjective Patient much improved Objective Last 24 Hour Vital Signs Date Time Temp Pulse Resp B/P (MAP) Pulse Ox O2 Delivery O2 Flow Rate FiO2 11/01/19 05:24 87 21 99 35 11/01/19 04:00 40 11/01/19 04:00 98.3 78 18 156/71 (99) 100 11/01/19 04:00 Nasal Cannula 4.0 Bi-pap 11/01/19 04:00 68 11/01/19 02:59 86 21 99 35 11/01/19 00:50 75 23 99 35 11/01/19 00:00 Nasal Cannula 4.0 Nasal Cannula 4.0 11/01/19 00:00 98.3 70 17 180/87 (118) 99 11/01/19 00:00 86 11/01/19 00:00 4.0 10/31/19 21:57 99 Nasal Cannula 4.0 36 10/31/19 21:56 87 152/88 10/31/19 20:20 87 20 99 10/31/19 20:00 4.0 10/31/19 20:00 97.9 86 18 152/88 (109) 100 10/31/19 20:00 Nasal Cannula 4.0 Nasal Cannula 4.0 10/31/19 20:00 80 10/31/19 18:13 193/104 10/31/19 18:13 193/104 10/31/19 18:00 83 18 193/104 (133) 97 10/31/19 17:00 98.2 72 13 154/69 (97) 99 10/31/19 16:00 69 12 154/88 (110) 100 10/31/19 16:00 Bi-pap Bi-pap 10/31/19 16:00 3.0 3/17/20 15:25 79 10/31/19 15:00 80 23 147/95 (112) 100 10/31/19 14:03 80 15 153/85 (107) 98 10/31/19 14:00 79 17 147/90 (109) 98 10/31/19 13:50 97.4 10/31/19 13:20 173/91 10/31/19 13:00 97.4 81 23 173/91 (118) 99 10/31/19 12:30 94 18 96 10/31/19 12:00 79 11 162/76 (104) 99 10/31/19 12:00 Bi-pap Bi-pap 10/31/19 12:00 3.0 10/31/19 11:46 78 10/31/19 11:12 95 18 99 10/31/19 11:00 79 14 170/103 (125) 100 10/31/19 10:00 79 13 189/109 (135) 100 10/31/19 09:55 173/118 10/31/19 09:26 66 18 98 10/31/19 09:00 79 16 173/118 (136) 100 10/31/19 08:28 153/88 10/31/19 08:27 81 153/88 10/31/19 08:27 153/88 10/31/19 08:10 98.4 81 19 153/88 (109) 100 10/31/19 08:01 81 10/31/19 08:00 Bi-pap Bi-pap 10/31/19 08:00 3.0 Intake and Output 10/31/19 11/01/19 19:00 07:00 Intake Total 775 ml Output Total 6020 ml Balance -5245 ml Intake Oral 775 ml Output Urine Total 20 ml Hemodialysis UF 6000 ml # Voids 1 Height (Feet): 5 Height (Inches): 6.00 Weight (Pounds): 142 General Appearance: no apparent distress EENT: normal ENT inspection Neck: normal alignment, supple Cardiovascular: normal rate Respiratory/Chest: lungs clear, normal breath sounds Abdomen: non tender, soft Edema: 1+ Arm (L), 1+ Arm (R), 1+ Leg (L), 1+ Leg (R), 1+ Pedal (L), 1+ Pedal ( R), 1+ Generalized De Zach,Ismael MD Nov 01, 2019 08:00
[2019-11-01 08:30] VITALS: BP 160/90
[2019-11-01] MEDS: HydrALAZINE 50mg tab ORAL SCH ×2 (09:00→16:02)
[2019-11-01] MEDS ORDERED: Carvedilol 25mg Tab ORAL SCH (09:00)
[2019-11-01] MEDS ORDERED: Lisinopril 20mg tab ORAL SCH (09:00)
[2019-11-01] MEDS: HYDROmorphone 1mg/ml Carpuject IVP PRN ×2 (09:24→15:47)
--- NOTE | 2019-11-01 09:36 | Pulmonology Progress Note ---
Assessment/Plan Assessment/Plan ASSESSMENT AND PLAN: 1. End-stage renal disease, on hemodialysis. S/p hemodialysis with ultrafiltration. 2. Hypertensive urgency. I will continue Coreg, hydralazine, and Procardia. I will adjust medications as deemed appropriate. 3. Anemia of chronic kidney disease. Once blood pressure is stable, we will continue Epogen. 4. Respiratory failure. Off BiPAP. DC home today Outpt HD Home O2 Lele Peck MD Subjective Interval Events: None new; SaO2 94% on 3L/min O2 Constitutional: Reports: no symptoms HEENT: Repors: no symptoms Respiratory: Reports: shortness of breath Cardiovascular: Reports: no symptoms Gastrointestinal/Abdominal: Reports: no symptoms Allergies: Coded Allergies: METOCLOPRAMIDE (Verified Allergy, Unknown, 10/30/19) Objective Last 24 Hour Vital Signs Date Time Temp Pulse Resp B/P (MAP) Pulse Ox O2 Delivery O2 Flow Rate FiO2 11/01/19 09:26 76 160/90 11/01/19 09:25 160/90 11/01/19 08:30 98.1 76 20 160/90 (113) 98 11/01/19 05:24 87 21 99 35 11/01/19 04:00 40 11/01/19 04:00 98.3 78 18 156/71 (99) 100 11/01/19 04:00 Nasal Cannula 4.0 Bi-pap 11/01/19 04:00 68 11/01/19 02:59 86 21 99 35 11/01/19 00:50 75 23 99 35 11/01/19 00:00 Nasal Cannula 4.0 Nasal Cannula 4.0 11/01/19 00:00 98.3 70 17 180/87 (118) 99 11/01/19 00:00 86 11/01/19 00:00 4.0 10/31/19 21:57 99 Nasal Cannula 4.0 36 10/31/19 21:56 87 152/88 10/31/19 20:20 87 20 99 10/31/19 20:00 4.0 10/31/19 20:00 97.9 86 18 152/88 (109) 100 10/31/19 20:00 Nasal Cannula 4.0 Nasal Cannula 4.0 10/31/19 20:00 80 10/31/19 18:13 193/104 10/31/19 18:13 193/104 10/31/19 18:00 83 18 193/104 (133) 97 10/31/19 17:00 98.2 72 13 154/69 (97) 99 10/31/19 16:00 69 12 154/88 (110) 100 10/31/19 16:00 Bi-pap Bi-pap 10/31/19 16:00 3.0 10/31/19 15:25 79 10/31/19 15:00 80 23 147/95 (112) 100 10/31/19 14:03 80 15 153/85 (107) 98 10/31/19 14:00 79 17 147/90 (109) 98 10/31/19 13:50 97.4 10/31/19 13:20 173/91 10/31/19 13:00 97.4 81 23 173/91 (118) 99 10/31/19 12:30 94 18 96 10/31/19 12:00 79 11 162/76 (104) 99 10/31/19 12:00 Bi-pap Bi-pap 10/31/19 12:00 3.0 10/31/19 11:46 78 10/31/19 11:12 95 18 99 10/31/19 11:00 79 14 170/103 (125) 100 10/31/19 10:00 79 13 189/109 (135) 100 10/31/19 09:55 173/118 Intake and Output 10/31/19 11/01/19 19:00 07:00 Intake Total 775 ml Output Total 6020 ml Balance -5245 ml Intake Oral 775 ml Output Urine Total 20 ml Hemodialysis UF 6000 ml # Voids 1 General Appearance: no acute distress HEENT: normocephalic Respiratory/Chest: chest wall non-tender, decreased breath sounds Cardiovascular: normal peripheral pulses Abdomen: normal bowel sounds Microbiology Date/Time Source Procedure Growth Status 10/30/19 03:40 Nasal Nares MRSA Culture - Final NO METHICILLIN RESISTANT STAPH AUREUS... Complete Current Medications Medications (Trade) Dose Ordered Sig/Rodolfo Route PRN Reason Start Time Stop Time Status Last Admin Dose Admin Acetaminophen (Tylenol) 650 mg Q4H PRN ORAL Mild Pain (Pain Scale 1-3) 10/31/19 20:00 11/29/19 19:59 Carvedilol (Coreg) 50 mg EVERY 12 HOURS ORAL 11/01/19 09:00 11/29/19 08:59 11/01/19 09:26 Chlorhexidine Gluconate (Oma-Hex 2%) 1 applic DAILY@2000 TOPIC 11/01/19 20:00 01/30/20 19:59 Clonidine HCl (Catapres TTS-3) 1 patch QWEEK TDERMAL 10/31/19 09:00 11/07/19 08:59 10/31/19 09:55 Clonidine HCl (Catapres TTS-3) 1 patch QWEEK TDERMAL 11/07/19 09:00 11/30/19 08:59 Clonidine HCl (Catapres tab) 0.2 mg Q4H PRN ORAL SBP > 160mmHg 10/31/19 20:00 11/29/19 19:59 Dextrose (Dextrose 50%) 25 ml Q30M PRN IV Hypoglycemia 10/31/19 20:00 11/29/19 03:29 Dextrose (Dextrose 50%) 50 ml Q30M PRN IV Hypoglycemia 10/31/19 20:00 11/29/19 03:29 Heparin Sodium (Porcine) (Heparin 5000 units/ml) 5,000 units EVERY 12 HOURS SUBQ 10/31/19 21:00 12/14/19 08:59 10/31/19 21:55 Hydralazine HCl (Apresoline) 100 mg TID ORAL 11/01/19 09:00 11/29/19 08:59 Hydromorphone HCl (Dilaudid) 1 mg Q4H PRN IVP PAIN 4-10 10/31/19 20:45 11/06/19 04:44 11/01/19 09:24 Insulin Aspart (NovoLOG) BEFORE MEALS AND HS SUBQ 10/31/19 21:00 11/29/19 06:29 11/01/19 05:49 Insulin Detemir (Levemir) 20 units BID SUBQ 11/01/19 10:00 01/30/20 09:59 Lisinopril (PriniviL) 40 mg BID ORAL 11/01/19 09:00 11/29/19 08:59 11/01/19 09:25 Lorazepam (Ativan 2mg/ml 1ml) 1 mg Q4H PRN IV For Anxiety 10/31/19 20:30 11/06/19 20:29 Nicotine (Nicoderm) 1 patch Q24H TDERMAL 11/01/19 09:00 11/29/19 08:59 Ondansetron HCl (Zofran ODT) 4 mg Q6H PRN ORAL Nausea & Vomiting 10/31/19 21:00 11/29/19 20:59 Sevelamer Carbonate (Renvela) 800 mg THREE TIMES A DAY ORAL 11/01/19 09:00 11/30/19 08:59 11/01/19 09:24 Lele Peck MD Nov 01, 2019 09:36
[2019-11-01] MEDS: Heparin 5000 units/ml inj SUBQ SCH (09:42)
[2019-11-01] MEDS ORDERED: Levemir Flexpen SUBQ SCH (10:00)
--- NOTE | 2019-11-01 10:13 | NUR ---
SALESPERSON SURGICAL APPLIANCES NOTE DISCHARGE INSTRUCTIONS INDICATE DC HOME WITH HOME O2. CONFIRMED WITH LEONIDAS PONCE, STATES PATIENT HAS HOME O2 AND PORTABLE O2 AT HOME ALREADY. NO NEED TO COORDINATE O2 BY CM.
--- NOTE | 2019-11-01 10:17 | NUR ---
RD ASSESSMENT & RECOMMENDATIONS SEE CARE ACTIVITY FOR COMPLETE ASSESSMENT DAILY ESTIMATED NEEDS: Needs based on ESRD on HD, pulmonary 66.7kg abw 30-35 kcals/kg 5538-6164 total kcals 1.2-1.8 g protein/kg 80-120 g total protein Fluid per MD, on HD NUTRITION DIAGNOSIS: Increased Kcal and pro needs r/t renal dysfunction as evidenced by pt w/ ESRD on dialysis. CURRENT DIET:Renal PO DIET RECOMMENDATIONS: RENAL/ CCHO MED diet w/ added protein ADDITIONAL RECOMMENDATIONS: 1) Obtain a standing weight 2) Add high pro snacks in b/w meals 3) Add hypoglycemics
--- NOTE | 2019-11-01 11:03 | NUR ---
CROP GRAIN OR LIVESTOCK FARM MANAGER NOTE CALL RECEIVED FROM "CHADWICK" WHO IDENTIFIED HERSELF PATIENTS COUSIN AND CAREGIVER. THIS FAMILY MEMBER NOT ON FACE SHEET AND INFORMED NO INFORMATION ABLE TO BE DISCLOSED. CM SPOKE WITH PATIENT AT BEDSIDE. PATIENT A&O X4. PATIENT CONFIRMS CHADWICK MARCIE @ [phone] IS HIS COUSIN AND PRIMARY CAREGIVER. GAVE VERBAL PERMISSION TO DISCUSS PATIENT HOME NEEDS FOR DME WITH CHADWICK. ATTEMPTED TO CALL CHADWICK AT NUMBER PROVIDED WITH NO ANSWER. VM LEFT REQUESTING RETURN CALL.
--- NOTE | 2019-11-01 11:54 | NUR ---
PHOTO LAB TECHNICIAN NOTE CALL BACK RECEIVED FROM PATIENTS CAREGIVER/COUSIN CHADWICK MOELLER PROVIDED INFORMATION FOR [facility]ME [phone] THE O2 SUPPLIER FOR PATIENT. SPOKE WITH KWASI AT [facility] WHO CONFIRMS THEY ARE CURRENTLY SUPPLYING HOME O2 FOR PATIENT. KWASI REQUESTS CURRENT CLINICALS IN RE TO PATIENTS O2 DEPENDENCE.. CLINICALS FAXED TO [phone] Addendum: 11/01/19 at 1312 by ALEKSEY FAULKNER LVN LVN CLINICALS FAXED TO [facility] [facility] @ [phone] Addendum: 11/01/19 at 1530 by ALEKSEY FAULKNER LVN LVN FOLLOW UP CALL MADE TO [facility] @ [phone] PER DALTON, CONFIRMED RECEIPT OF CLINICALS FAXED TO [phone]
--- NOTE | 2019-11-01 12:00 | NUR ---
NURSE NOTES: Patient encouraged to eat,refused lunch,explained on insulin,took juice,offer patient what he wants,refused
[2019-11-01 12:15] VITALS: BP 161/85
--- NOTE | 2019-11-01 12:29 | NUR ---
M[facility] NOTE:OUTPATIENT DIALYSIS PATIENTS OUTPATIENT DIALYSIS CONFIRMED WITH [facility] [phone] CONFIRMED WITH JOB, PATIENTS CHAIR TIME M-W-F 1330 PM PATIENT STATES TRANSPORTATION TO AND FROM HD PROVIDED BY HIS CAREGIVER/COUSIN, CHADWICK COUGHLIN INFORMED JOB THAT PATIENT WILL RESUME OPT HD AT [facility] ON Wed11/03/2019
--- NOTE | 2019-11-01 14:00 | NUR ---
ptreceivedhdvialeft av fistula with strong thrill and bruit received pt from [facility] tolerated well uf 3000ml may dc to home after hd vs stable endorsed to [facility]
--- NOTE | 2019-11-01 15:00 | NUR ---
NURSE NOTES: Patient tolerated dialysis,monitor Vital signs,Dr. Gallagher ordered to give Coreg and prinivil prior dialysis,notified elevated BP Post dialysis BP elevated apresoline given 0900 dose ,monitor BP 1742 Bp 150/90 1230 blood sugar 241 stated he feels hypoglycemic,novolog not given ,will recheck blood sugar 1400 blood sugar 129, 1645 38 blood sugar, 2 juices given 1817 blood sugar 123 was complaining back pain,dilaudid given with help
[2019-11-01 15:50] VITALS: BP 170/88
[2019-11-01 17:42] VITALS: BP 150/90
--- NOTE | 2019-11-01 18:20 | NUR ---
NURSE NOTES: Discharge note: 1814 I was about to discharge patient,patient not in room,Brianne-charge nurse in Tele called,patient walking with his O2,i went to see patient,he was already in car with cousin,anxious to go home 1819 Discharge patient with female cousin in private car on home O2,stable,patient took belongings home,left AV shunt dressing dry intact,right chest central line ,dressing dry ,clean intact
[2019-11-01] MEDS ORDERED: Dyna-Hex 2% Top Sol 2oz TOPIC SCH (20:00)
--- NOTE | 2019-11-02 13:20 | Discharge Summary ---
Discharge Summary Discharge Summary _ DATE OF ADMISSION: 10/30/2019 DATE OF DISCHARGE: 11/01/2019 DISCHARGED BY: Dr. Peck REASON FOR ADMISSION: 39 years old male with past medical history of end-stage renal disease, on hemodialysis, hypertension, diabetes mellitus, asthma, previous right thoracotomy and decortication due to right-sided pleural effusion, presented to emergency department with acute respiratory distress. Patient undergone additional hemodialysis session on Wednesday , in addition to his usual days Wednesday ,Wednesday, Wednesday. However he continued to feel short of breath, had extremely elevated blood pressure 193/108 and was in respiratory distress. Laboratory work-up revealed no leukocytosis, hemoglobin 9.4, hematocrit 28.6, platelet count 269. Troponin 0.029, pro BNP above 35,000. EKG revealed sinus rhythm , no acute ischemic changes Glucose 308. Stable electrolytes. BUN 49, creatinine 6.5, consistent with known history of end-stage renal disease. Chest x-ray demonstrated extensive bilateral diffuse interstitial airspace infiltrates versus edema. Large right pleural effusion and/or pleural thickening. In emergency department patient was placed on the BiPAP. Patient received diuretic and admitted to ICU for further management . CONSULTANTS: overlock hemmer Dr.De Serrano [facility] COURSE: Patient admitted to ICU. Packaging Mechanic consulted . Patient received emergent hemodialysis with ultrafiltration. Volumes, renal parameters and electrolytes were closely monitored. Blood pressure was managed with multiple antihypertensive medications, including beta-jame , hydralazine and calcium channel jame. Antihypertensive regimen further optimized as needed. Hemoglobin and hematocrit were closely monitored with goal to keep hemoglobin above 7. Prior to discharge hemoglobin 9, hematocrit 27.7. Packaging Mechanic recommended hold Epogen until blood pressure stabilized. Supplemental oxygen titrated to keep pulse oximetry above 90%. Patient was able to be weaned from BiPAP to nasal cannula. Bronchodilator treatment provided as needed. Patient received 3 days in a row of hemodialysis for excessive volume. To optimize blood pressure control, clonidine patch was added and dose of Coreg was uptitrated. Procardia was changed to lisinopril. Patient received Renvela with meals . Blood sugar was managed with sliding scale of insulin. Blood pressure improved 150/90 prior to discharge. DVT prophylaxis provided. Patient clinically stabilized and was ready for discharge home. FINAL DIAGNOSES: Respiratory failure /due to fluid overload -resolved Hypertensive urgency End-stage renal disease , on hemodialysis Anemia of chronic kidney disease Diabetes mellitus DISCHARGE MEDICATIONS: See Medication Reconciliation list. DISCHARGE INSTRUCTIONS: Patient was discharged home . Follow-up with outpatient hemodialysis schedule. Follow-up with a primary care provider in 1 week. I have been assigned to dictate discharge summary for this account. I was not involved in the patient's management. Itzel Samuel NP Nov 02, 2019 13:20
== END 2019-11-01 18:20 | disposition home or self-care (01) | DRG 640 ==
LOC: EDBD 02:14 → EMR 02:30 → ICU 03:00 → EDBEDREQTM 03:26 → EDBEDREQ 03:26 → EDBEDREQSVC 03:26 → EDBEDREQ 03:27 → 2W 10-31 19:18
PROC: 5A1D70Z Performance of Urinary Filtration, Intermittent, Less than 6 Hours Per Day (ICD-10-PCS; principal; 2019-10-30)
PROC: 5A09457 Assistance with Respiratory Ventilation, 24-96 Consecutive Hours, Continuous Positive Airway Pressure (ICD-10-PCS; principal; 2019-10-30)
DX: E87.79 Other fluid overload (principal); J96.90 Respiratory failure, unspecified, unspecified whether with hypoxia or hypercapnia; N18.6 End stage renal disease; I12.0 Hypertensive chronic kidney disease with stage 5 chronic kidney disease or end stage renal disease; I16.0 Hypertensive urgency; E11.22 Type 2 diabetes mellitus with diabetic chronic kidney disease; D63.1 Anemia in chronic kidney disease; Z99.2 Dependence on renal dialysis
CPT/HCPCS: 36415; 71045; 80048; 80053; 82550; 82962; 83880; 84484; 85025; 86706; 87081; 93005; 94660; 94664; 96374; 99291; J1815; S5561